=== PATIENT | female | born 1950 | race Caucasian/White ===

== ENCOUNTER 2016-03-01 07:52 | Day surgery (SDC) | payer MEDICARE, MEDICAID ==
--- NOTE | 2016-03-01 11:24 | Operative Note - [facility] ---
PAIN SERVICE OPERATIVE REPORT DATE OF PROCEDURE: 03/01/2016. PREOPERATIVE DIAGNOSIS: CERVICAL SPONDYLOSIS WITHOUT MYELOPATHY, ICD10 CODE M47.812. PROCEDURE: Radiofrequency rhizotomy left cervical facets 2-3, 3-4, and 4-5. SURGEON: Julito Gray D.O. ANESTHESIA: Local sedation. ANESTHESIA PROVIDER: Marky Crews CRNA. INDICATIONS: This patient presents with bilateral neck pain. Examination shows diffuse tenderness in the cervical spine. Range of motion does cause pain to the neck with extension. Diagnostics show extensive spurring and disc space abnormalities. A facet series resulted in 75 to 90 percent control. Due to the failure of therapies and success of the facet series, she is here for rhizotomy for more long-term relief. DESCRIPTION OF PROCEDURE: Intravenous line, vital sign monitoring, and IV sedation. Prepped and draped with sterile technique. Cervical facet levels in the area of pain on the left were identified and marked at 2-3, 3-4, and 4-5. Each one of these points on the skin was infiltrated. A 22-gauge rhizotomy cannula was positioned. Stimulation trials were conducted. Rhizotomy burn was performed. Local with anti-inflammatory into the sites. Topical antibiotic and sterile dressings were applied. We will monitor and evaluate. She will return based up on the insurance requirements for repeat to the opposite right side. Julito Gray D.O. Date Time Job Number: [id number] cc: Sakshi Rodarte
[2016-03-01] MEDS ORDERED: LIDOCAINE 2% MDV (20MG/ML) 20ML VIAL IV ONE (13:24)
[2016-03-01] MEDS ORDERED: FENTANYL PF 100MCG/2ML VIAL IV ONE (13:24)
[2016-03-01] MEDS ORDERED: PROPOFOL 10 MG/ML VIAL IV ONE (13:24)
[2016-03-01] MEDS ORDERED: DEXAMETHASONE PRESERVATIVE FREE 10MG/ML VIAL IV ONE (14:30)
[2016-03-01] MEDS ORDERED: OXYCODONE/APAP 10MG-325MG TABLET PO ONE (14:30)
[2016-03-01] MEDS ORDERED: 0.9 % SODIUM CHLORIDE 10 ML VIAL IVP ONE (14:30)
[2016-03-01] MEDS ORDERED: BUPIVACAINE 0.5% W/EPI MPF 30 ML VIAL IVP ONE (14:30)
[2016-03-01] MEDS ORDERED: LIDOCAINE 1% W/EPI 1:200,000 MPF 30ML SQ ONE (14:30)
== END 2016-03-01 10:15 | disposition home or self-care (01) ==
LOC: SUR 07:52
PROVIDERS: ATTEND Pain Medicine Interventional Pain Medicine
DX: M47.812 Spondylosis without myelopathy or radiculopathy, cervical region (principal); I10 Essential (primary) hypertension
CPT/HCPCS: 64633; 64634 ×2; 01936; J1100; J3010

== ENCOUNTER 2016-04-26 08:27 | Day surgery (SDC) | payer MEDICARE, MEDICAID ==
[2016-04-26] MEDS ORDERED: OXYCODONE/APAP 10MG-325MG TABLET PO ONE (13:29)
[2016-04-26] MEDS ORDERED: LIDOCAINE 1% W/EPI 1:200,000 MPF 30ML SQ ONE (13:29)
[2016-04-26] MEDS ORDERED: BUPIVACAINE 0.5% W/EPI MPF 30 ML VIAL IVP ONE (13:29)
[2016-04-26] MEDS ORDERED: DEXAMETHASONE PRESERVATIVE FREE 10MG/ML VIAL IV ONE (13:29)
--- NOTE | 2016-04-26 14:20 | Operative Note ---
PAIN SERVICE OPERATIVE REPORT DATE OF PROCEDURE: 04/26/2016. PREOPERATIVE DIAGNOSIS: CERVICAL SPONDYLOSIS WITHOUT MYELOPATHY, ICD10 CODE M47.812. PROCEDURE: Radiofrequency rhizotomy right cervical facets 2-3, 3-4, and 4-5. SURGEON: Julito Gray D.O. ANESTHESIA: Local sedation. ANESTHESIA PROVIDER: Marky Crews CRNA. INDICATIONS: This patient presents with pain which is in the neck. Examination shows tenderness in the cervical spine. Range of motion does cause pain to the neck and back side of the head. Diagnostics show multilevel spondylosis. A facet series resulted in 75 to 90 percent pain control. Due to the failure of therapies and success of the facet series, she is here for rhizotomy for more long-term relief. DESCRIPTION OF PROCEDURE: Intravenous line, vital sign monitoring, and IV sedation. Prepped and draped with sterile technique. Under imaging, the facet levels in the cervical spine on the right at 2-3, 3-4, and 4-5 were marked and infiltrated. A 20-gauge rhizotomy cannula was positioned. Stimulation trials were conducted. Rhizotomy burn was performed. Local with anti-inflammatory into the sites. Topical antibiotic and sterile dressings were applied. Due to the revised insurance guidelines limiting the number of levels and bilateral technique, she had the right side treated today and will return for treatment of the left. Jultio Gray D.O. Date Time Job Number: [id number] cc: Sakshi Rodarte
[2016-04-26] MEDS ORDERED: PROPOFOL 10 MG/ML VIAL IV ONE (15:27)
[2016-04-26] MEDS ORDERED: FENTANYL PF 100MCG/2ML VIAL IV ONE (15:27)
[2016-04-26] MEDS ORDERED: LIDOCAINE 2% MDV (20MG/ML) 20ML VIAL IV ONE (15:27)
== END 2016-04-26 11:00 | disposition home or self-care (01) ==
LOC: SUR 08:27
PROVIDERS: ATTEND Pain Medicine Interventional Pain Medicine
DX: M47.812 Spondylosis without myelopathy or radiculopathy, cervical region (principal); I10 Essential (primary) hypertension
CPT/HCPCS: 64633; 64634 ×2; 01936; J1100; J3010

== ENCOUNTER 2016-05-10 07:51 | Day surgery (SDC) | payer MEDICARE, MEDICAID ==
[2016-05-10] MEDS ORDERED: BUPIVACAINE 0.5% W/EPI MPF 30 ML VIAL IVP ONE (12:13)
[2016-05-10] MEDS ORDERED: LIDOCAINE 1% W/EPI 1:200,000 MPF 30ML SQ ONE (12:13)
[2016-05-10] MEDS ORDERED: BUPIVACAINE 0.25% MPF 30ML VIAL IVP ONE (12:13)
[2016-05-10] MEDS ORDERED: DEXAMETHASONE PRESERVATIVE FREE 10MG/ML VIAL IV ONE (12:13)
[2016-05-10] MEDS ORDERED: PROPOFOL 10 MG/ML VIAL IV ONE (14:59)
[2016-05-10] MEDS ORDERED: FENTANYL PF 100MCG/2ML VIAL IV ONE (14:59)
--- NOTE | 2016-05-11 15:26 | Operative Note - [facility] ---
DATE OF SURGERY: 05/10/16 PREOPERATIVE DIAGNOSIS: CERVICAL RADICULITIS, ICD-10 CODE = M54.13. OPERATION: FLUOROSCOPICALLY-GUIDED CERVICAL EPIDURAL INJECTION C7/T1. SURGEON: RAFAELA LAWSON D.O. ANESTHESIA: LOCAL SEDATION. ANESTHESIA PROVIDER: SEGUN ABRBER CRNA. INDICATION: This patient presents with pain, which is neck, shoulder, and arm. Diagnostics show extensive multiple levels of spondylosis and disc abnormalities. PROCEDURE: Intravenous line, vital sign monitoring, IV sedation, prepped, draped, sterile technique. Under imaging, the cervical epidural interspace at C7 /T1 on the left was marked, infiltrated, and an 18-gauge Tuohy needle with loss- of-resistance. Saline injected and aspirated. No blood. No CSF. 5 mL of 0.125% Marcaine with Dexamethasone injected. Needle removed. Neck cleaned. Topical antibiotic. Sterile dressing applied. We will monitor and evaluate. RAFAELA LAWSON D.O. Date & Time cc: Dr. Colon JOB NUMBER: [id number] [facility]
== END 2016-05-10 10:38 | disposition home or self-care (01) ==
LOC: SUR 07:51
PROVIDERS: ATTEND Pain Medicine Interventional Pain Medicine
DX: M54.13 Radiculopathy, cervicothoracic region (principal); I10 Essential (primary) hypertension
CPT/HCPCS: 62321; 01992; J1100; J3010